=== PATIENT | female | born 1940 | race Caucasian/White ===

== ENCOUNTER 2017-01-15 23:42 | Emergency (ER) | payer MEDICARE, OTHER ==
--- NOTE | ~2017-01-15 | CR72 ---
[facility] A Service of [facility] & [facility] RADIOLOGY TEXT RESULTS PATIENT: TOBIN RIVERA LOCATION: [facility] : 39 UNIT #: [id number] AGE: [address]: Joe Coleman MD SEX: F ORDER DR: [id number] [facility] [address] [place], [place] [address] [id number] E MR#: [id number] Acc #: [id number] NAME: TOBIN RIVERA : 1940 SEX: F STUDY DATE/TIME: 01/15/2017 22:43 UNIT: [facility] ROOM: STUDY DESCRIPTION: CR Chest Single View Portable Attending Physician: Joe Coleman M.D. Ordering Physician: Joe Coleman M.D. Primary Care Physician: Micah Zavala M.D. MEDICAL IMAGING REPORT This report is preliminary unless electronic signature is present EXAM AP portable chest 01/15/2017 HISTORY 76-year-old female in the ED complaining of 1-day history of chest pain, cough, congestion, fever and headache. TECHNIQUE AP portable chest x-ray. FINDINGS The exam shows mild interstitial infiltrate in the right lower lung and a tiny right pleural effusion. Left lung is clear. Heart size and pulmonary vascularity are within normal limits. Left shoulder arthroplasty. IMPRESSION Mild right lower lung infiltrate and tiny right pleural effusion. Dictated by... Shen Sunshine M.D. THIS IS AN ELECTRONICALLY VERIFIED REPORT Shen Sunshine M.D. at 01/16/2017 5:59 AM TINY/choco TD: 01/16/2017 00:20 JOB #: [id number] MEDICAL IMAGING REPORT Page 1 of 1 COPY
--- NOTE | ~2017-01-15 | EKG ---
PATIENT: TOBIN RIVERA UNIT #: [id number] Ventricular Rate: 103 BPM Atrial Rate: 103 BPM P-R Interval: 196 ms QRS Duration: 82 ms Q-T Interval: 328 ms QTC Calculation(Bezet): 429 ms P [place]: 51 degrees Calculated R [place]: 30 degrees Calculated T [place]: 32 degrees Diagnosis Line: Sinus tachycardia Diagnosis Line: Nonspecific ST abnormality Diagnosis Line: Borderline ECG Diagnosis Line: No previous ECGs available Diagnosis Line: Confirmed by DEREK COLLADO MD ([id number]) on 01/16/2017 Diagnosis Line: 10:37:15 PM INTERPRETING MD: HEAVEN MILLER
[2017-01-15 22:44] LABS: POC - CKMB <1.0 ng/mL (0.0-7.9); POC - TROPONIN <0.05 ng/mL (<=0.05)
[2017-01-15 22:58] LABS: BASOPHIL% 0.4 % (0-2.5); DIFF IND NO; EOSINOPHIL% 0.8 % (0.0-7.0); HEMATOCRIT 39.4 % (35.0-45.0); LYMPHOCYTE# 0.7 X10e3 (1.0-3.5); LYMPHOCYTE% 11.8 % (17.0-45.0); MEAN CELL VOLUME 91.4 FL (83-96); MEAN CORPUSCULAR HEMOGLOBIN 30.1 PG (28-34); MEAN CORPUSCULAR HGB CONC 32.9 g/dL (30-36); MEAN PLATELET VOLUME 7.6 FL (6.5-11.5); MONOCYTE# 0.5 X10e3 (0-1.0); MONOCYTE% 8.3 % (3.0-12.0); NEUTROPHIL# 4.5 X10e3 (1.5-7.1); NEUTROPHIL% 78.7 % (40-75); PLATELET COUNT 137 X10e3 (140-420); RED BLOOD COUNT 4.31 X10e (3.90-5.30); RED CELL DISTRIBUTION WIDTH 14.3 % (11.0-15.5); WHITE BLOOD COUNT 5.8 X10e3 (4.0-10.5)
[2017-01-15 23:19] LABS: ALBUMIN SERUM 4.2 g/dL (3.5-5.0); BILIRUBIN, DIRECT 0.1 mg/dL (0.0-0.2); BILIRUBIN,INDIRECT 0.6 mg/dL (0.0-0.9); BILIRUBIN,TOTAL 0.7 mg/dL (0.2-2.0); BUN/CREATININE RATIO 8.75; CALCIUM SERUM 9.4 mg/dL (8.4-10.2); CREATININE SERUM 0.8 mg/dL (0.6-1.4); GLOM FILT RATE Estimated 71.2 mL/min (>60); POTASSIUM 3.7 mmol/L (3.5-5.1); PROTEIN TOTAL SERUM 7.1 g/dL (6.0-8.3)
[2017-01-15 23:26] LABS: INFLUENZA A NEG (NEG); INFLUENZA B NEG (NEG)
[~2017-01-15 23:42] MED LIST: ALBUTEROL20 ml INH; BP MED; BREO ELLIPTA 11 EACH INH; COLESTID PO; GABAPENTIN300 M2 PO; HUMIBID-LA600 MG PO; HYDROCODON-ACE1 EAC7 PO; LASIX PO; LASIX20 MG PO; LEVAQUIN750 M1 PO; LISINOPRIL10 MG PO; LOPRESSOR PO; LORTAB 5-325 M1 EACH PO; METOPROLOL SUCC50 MG PO; NEXIUM PO; OXYCODON-ACETA1 EAC1 PO; PERCOCET 10/3251 TAB PO; PREDNISONE10 MG/DOSE PO; ST JOSEPH ASPIR81 MG PO; VITAMIN D 22000 UNIT PO; WELCHOL625 MG PO; ZOCOR PO; ZOLOFT PO
== END 2017-01-16 02:04 | disposition home or self-care (01) ==
LOC: CED 23:42
PROVIDERS: Emergency Medicine
DX: J18.1 Lobar pneumonia, unspecified organism (principal); J44.9 Chronic obstructive pulmonary disease, unspecified; I10 Essential (primary) hypertension; F17.210 Nicotine dependence, cigarettes, uncomplicated; Z90.710 Acquired absence of both cervix and uterus; Z90.49 Acquired absence of other specified parts of digestive tract; Z79.82 Long term (current) use of aspirin; Z79.899 Other long term (current) drug therapy
CPT/HCPCS: 36415; 71010; 80048; 80076; 82553; 84484; 85025; 87804; 93005; 99283; J0456; J0696

== ENCOUNTER 2017-03-01 19:00 | Emergency (ER) | payer OTHER, MEDICARE ==
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
== END 2017-03-01 21:55 | disposition home or self-care (01) ==
LOC: CFTX 19:00 → CED 19:00 → CFTX 20:43
DX: S46.912A Strain of unspecified muscle, fascia and tendon at shoulder and upper arm level, left arm, initial encounter (principal); S46.911A Strain of unspecified muscle, fascia and tendon at shoulder and upper arm level, right arm, initial encounter; S16.1XXA Strain of muscle, fascia and tendon at neck level, initial encounter; I10 Essential (primary) hypertension; E78.5 Hyperlipidemia, unspecified; K21.9 Gastro-esophageal reflux disease without esophagitis; F17.210 Nicotine dependence, cigarettes, uncomplicated; V43.62XA Car passenger injured in collision with other type car in traffic accident, initial encounter; Y92.410 Unspecified street and highway as the place of occurrence of the external cause
CPT/HCPCS: 70450; 72125; 73030; 99284

== ENCOUNTER → 2017-04-10 | Outpatient (CLI) | payer MEDICARE, OTHER ==
--- NOTE | ~2017-04-10 | CT57 ---
[facility] A Service of [facility] RADIOLOGY TEXT RESULTS PATIENT: TOBIN RIVERA LOCATION: [facility] : 39 UNIT #: [id number] AGE: [address]: Micah Zavala MD SEX: F ORDER DR: [id number] [facility] [address] [place], [place] [address] [id number] O MR#: [id number] Acc #: [id number] NAME: TOBIN RIVERA : 1940 SEX: F STUDY DATE/TIME: 04/10/2017 10:43 UNIT: [facility] ROOM: STUDY DESCRIPTION: CT Chest Wo Cont Attending Physician: Micah Zavala M.D. Ordering Physician: Micah Zavala M.D. Primary Care Physician: Micah Zavala M.D. MEDICAL IMAGING REPORT This report is preliminary unless electronic signature is present EXAM CT chest without contrast. INDICATIONS Follow up pulmonary nodule. TECHNIQUE CT of the chest was performed without contrast. Coronal and sagittal reformatted images were obtained. This CT exam was performed with one or more of the following radiation dose reduction techniques: automatic exposure control, adjustment of mA and/or kV according to patient size, and iterative reconstruction. COMPARISON Comparison with 07/23/2016. FINDINGS Stable 8 mm nodule in the left upper lobe. Minimal emphysematous change. No new nodules. Calcified granulomas bilaterally. Enlargement of the main pulmonary artery is nonspecific but can be seen of pulmonary arterial hypertension. This is stable. No suspicious lymphadenopathy. No pleural effusion. Coronary artery calcifications. Limited imaging of the upper abdomen is unremarkable. The bone windows are unremarkable. IMPRESSION Stable 8 mm left upper lobe pulmonary nodule. This can be followed again in another 6-12 months to document continued stability. Dictated by... Efren Bender M.D. THIS IS AN ELECTRONICALLY VERIFIED REPORT [facility] A Service of [facility] & [facility] RADIOLOGY TEXT RESULTS PATIENT: TOBIN RIVERA LOCATION: [facility] : 39 UNIT #: [id number] AGE: [address]: Micah Zavala MD SEX: F ORDER DR: Efren Bender M.D. at 04/12/2017 4:01 PM JAIR/michele TD: 04/11/2017 15:15 JOB #: [id number] MEDICAL IMAGING REPORT Page 1 of 1 COPY
--- NOTE | ~2017-04-10 | MY29 ---
[facility] A Service of [facility] RADIOLOGY TEXT RESULTS PATIENT: TOBIN RIVERA LOCATION: [facility] : 39 UNIT #: [id number] AGE: [address]: Micah Zavala MD SEX: F ORDER DR: [id number] [facility] [address] [place] [address] [place], [place] [address] [id number] O MR#: [id number] Acc #: [id number] NAME: TOBIN RIVERA : 1940 SEX: F STUDY DATE/TIME: 04/10/2017 9:20 UNIT: [facility] ROOM: STUDY DESCRIPTION: MY MEGHA SCREENING W/ CAD BILAT Attending Physician: Micah Zavala M.D. Ordering Physician: Micah Zavala M.D. Primary Care Physician: Micah Zavala M.D. MEDICAL IMAGING REPORT This report is preliminary unless electronic signature is present EXAM Bilateral digital screening mammogram with CAD COMPARISON May 02, 2015, December 05, 2011. INDICATION Breast cancer screening. 76-year-old asymptomatic female. No personal or family history of breast cancer. FINDINGS There are scattered fibroglandular densities. Benign arterial calcifications are noted in both breasts. There are no suspicious findings in either breast. IMPRESSION No mammographic evidence of malignancy. Annual screen mammography and clinical breast exam are recommended. Patients over the age of 40 are entered into a reminder system with target due date for the next mammogram. A result letter will also be sent to the patient. BIRADS: 2 Benign finding. Dictated by... Feliciano Quesada M.D. THIS IS AN ELECTRONICALLY VERIFIED REPORT Feliciano Quesada M.D. at 04/15/2017 1:54 PM ANUSHA/katerin [facility] A Service of [facility] RADIOLOGY TEXT RESULTS PATIENT: TOBIN RIVERA LOCATION: [facility] : 39 UNIT #: [id number] AGE: [address]: Micah Zavala MD SEX: F ORDER DR: TD: 04/10/2017 15:39 JOB #: [id number] MEDICAL IMAGING REPORT Page 1 of 1 COPY
== END | disposition home or self-care (01) ==
LOC: CWCC 08:55
DX: Z12.31 Encounter for screening mammogram for malignant neoplasm of breast (principal); R91.1 Solitary pulmonary nodule
CPT/HCPCS: 71250; G0202

== ENCOUNTER → 2017-05-20 | Outpatient (CLI) | payer MEDICARE, OTHER ==
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
== END | disposition home or self-care (01) ==
LOC: CMRI 16:41
DX: S89.92XA Unspecified injury of left lower leg, initial encounter (principal); M25.562 Pain in left knee; S80.12XA Contusion of left lower leg, initial encounter; M23.8X2 Other internal derangements of left knee; M22.42 Chondromalacia patellae, left knee
CPT/HCPCS: 73721